=== PATIENT | female | born 1990 | race Two or more races ===

== ENCOUNTER 2021-06-01 13:28 | Emergency (ER) | payer OTHER ==
[~2021-06-01] VITALS: Ht 157.5 cm; Wt 65.8 kg
--- NOTE | 2021-06-01 13:43 | NUR ---
BIB[facility], C/O RIGHT FOOT PAIN W/ BLISTER X 1 DAY. RATES PAIN 9/10. DENIES NUMBNESS/TINGLING IN THE EXTREMITY. WILL CONTINUE TO MONITOR THE PATIENT.
[2021-06-01] MEDS ORDERED: CEPH500C2 PO (14:52)
[2021-06-01] MEDS ORDERED: BACI3.5O23 OP (14:52)
[2021-06-01] MEDS ORDERED: CEPHALEXIN MONOHYDRATE 500 MG CAPSULE PO ONE ×2 (15:00→15:15)
[2021-06-01] MEDS ORDERED: BACITRACIN ZINC OINT PACKET 1 EA PACKET TP ONE (15:00)
[2021-06-01] MEDS ORDERED: ACETAMINOPHEN 325 MG TABLET PO ONE (15:00)
[2021-06-01] MEDS ORDERED: ACETAMINOPHEN 325 MG TABLET ONE (15:14)
--- NOTE | 2021-06-01 15:33 | NUR ---
WOUND CARE PROVIDED. PT IS MEDICALLY CLEARED. DISCHARGE IN STABLE CONDITION.
[2021-06-01 15:35] VITALS: BP 121/77
== END 2021-06-01 15:35 ==
LOC: ER 13:33
DX: S90.821A Blister (nonthermal), right foot, initial encounter (principal); L03.115 Cellulitis of right lower limb; Z59.0 Homelessness; Z79.899 Other long term (current) drug therapy; X58.XXXA Exposure to other specified factors, initial encounter; Y93.89 Activity, other specified; Y92.89 Other specified places as the place of occurrence of the external cause; Y99.8 Other external cause status